=== PATIENT | female | born 1995 | race Caucasian/White ===

== ENCOUNTER 2018-06-16 17:55 | Emergency (ER) | payer MEDICAID ==
[2018-06-16] MEDS ORDERED: KETOROLAC 30 MG/ML VIAL IVP ONE (18:07)
--- NOTE | 2018-06-16 18:11 | Emergency Department Record ---
History of Present Illness - General Chief Complaint: Abdominal Pain Stated Complaint: LOWER RT ABDOMINAL PAIN Time Seen by Provider: 06/16/18 17:58 Source: Patient Mode of Arrival: Ambulatory Limitations: No limitations - History of Present Illness Initial Comments: 23 yo female presents to ED for evaluation of progressively worsening RLQ pain that began yesterday associated with loose stools. Patient denies fevers, chills, or recent illness. Patient does report pain with walking this afternoon prompting visit to the ED. Patient denies urinary symptoms, denies vaginal discharge symptoms, reports previous tubal ligation, sharona, and gastric sleeve. Patient denies health problems at her baseline. MD Complaint: Abdominal pain Onset/Timin -: Days(s) Location: RLQ Radiation: None Migration to: No migration Severity: Moderate Quality: Aching Consistency: Constant Improves With: Nothing Worsens With: Movement Associated Symptoms: Diarrhea - Related Data Patient : No Previous Rx's Medication Instructions Recorded Naproxen [Naprosyn] 500 mg PO Q12H #30 tab. 06/16/18 Allergies Allergy/AdvReac Type Severity Reaction Status Date / Time No Known Drug Allergies Allergy Verified 06/16/18 18:15 Review of Systems Constitutional: Denies: Chills, Fever, Malaise, Night sweats Eyes: Denies: Eye discharge, Eye pain ENT: Denies: Congestion, Ear pain, Epistaxis Respiratory: Denies: Cough, Dyspnea Cardiovascular: Denies: Chest pain, Dyspnea on exertion Endocrine: Denies: Fatigue, Heat or cold intolerance Gastrointestinal: Reports: Abdominal pain, Diarrhea. Denies: Nausea, Vomiting Genitourinary: Denies: Incontinence, Retention Musculoskeletal: Denies: Arthralgia, Back pain, Gout Skin: Denies: Bruising, Change in color Neurological: Denies: Abnormal gait, Confusion, Headache Psychiatric: Denies: Anxiety Hematological/Lymphatic: Denies: Anemia, Blood Clots Physical Exam - General General Appearance: Alert, Oriented x3, Cooperative, Mild distress Limitations: No limitations - Head Head exam: Atraumatic, Normocephalic, Normal inspection Head exam detail: negative: Abrasion, Contusion, Mason's sign, General tenderness, Hematoma, Laceration - Eye Eye exam: Normal appearance. negative: Conjunctival injection, Periorbital swelling, Periorbital tenderness, Scleral icterus - ENT Ear exam: negative: Auricular hematoma, Auricular trauma Nasal Exam: negative: Active bleeding, Discharge, Dried blood Mouth exam: negative: Drooling, Laceration, Muffled voice, Tongue elevation - Neck Neck exam: Normal inspection. negative: Meningismus, Tenderness - Respiratory Respiratory exam: Normal lung sounds bilaterally. negative: Respiratory distress, Rhonchi, Stridor, Wheezes - Cardiovascular Cardiovascular Exam: Regular rate, Normal rhythm, Normal heart sounds - GI/Abdominal GI/Abdominal exam: Soft, Tenderness (TTP over the RLQ, no guarding, rebound, or peritoneal signs on examination.). negative: Pulsatile mass, Rebound, Rigid - Rectal Rectal exam: Deferred - exam: Deferred - Extremities Extremities exam: Normal inspection. negative: Pedal edema, Tenderness - Back Back exam: Denies: CVA tenderness (R), CVA tenderness (L) - Neurological Neurological exam: Alert, Normal gait, Oriented X3 - Psychiatric Psychiatric exam: Normal affect, Normal mood - Skin Skin exam: Normal color. negative: Abrasion Type of lesion: negative: abrasion Course - Reevaluation(s) Reevaluation #1: 06/16/18 19:48 Laboratory studies were reviewed and are grossly unremarkable for an acute process except for Hgb 10.7. UA appears negative. CT Abdomen and Pelvis: No acute process Probable 2.4 cm ovarian cyst RLQ Patient was updated on all results, patient reports that her abdomen "still fucking hurts" following Toradol administration. Will order Ofirmev and reassess. Reevaluation #2: 06/16/18 20:41 Patient was updated on all results, reports that her pain symptoms are improved. Following our discussion, will have the patient return to the ED in the morning for US of the pelvis for further evaluation of her probable right ovarian cyst. Will discharge home on Naprosyn as well. Patient and her mother are in agreement with the plan of care as discussed. Medical Decision Making - Lab Data Result diagrams: 06/16/18 19:20 06/16/18 19:20 Disposition Disposition: Discharge Clinical Impression: Abdominal pain Qualifiers: Abdominal location: right lower quadrant Qualified Code(s): R10.31 - Right lower quadrant pain Disposition: Home, Self-Care Condition: (2) Stable Instructions: Abdominal Pain (ED) Additional Instructions: Return to ED tomorrow morning for US for further evaluation of probable ovarian cyst right lower quadrant. Naprosyn as directed. Follow-up with your family doctor in 3-5 days as directed. Prescriptions: Naproxen [Naprosyn] 500 mg PO Q12H #30 tab.dr Forms: Patient Portal Access Time of Disposition: 20:44 Quality - Quality Measures Quality Measures: N/A - Blood Pressure Screening Does Patient Have Any of the Following: No Blood Pressure Classification: Pre-Hypertensive BP Reading Systolic Measurement: 123 Diastolic Measurement: 85 Screening for High Blood Pressure: < Pre-Hypertensive BP, F/U Documented > [ [id number]] Pre-Hypertensive Follow-up Interventions: Referral to alternative/primary care provider.
[2018-06-16] MEDS ORDERED: 0.9 % SODIUM CHLORIDE 1000ML 1,000 ML IV SCH (18:15)
[2018-06-16 18:20] LABS: HCG,QUALITATIVE URINE NEGATIVE (NEGATIVE); URINE APPEARANCE CLEAR; URINE BILIRUBIN NEGATIVE (NEGATIVE); URINE BLOOD NEGATIVE (NEGATIVE); URINE COLOR YELLOW; URINE GLUCOSE (UA) NEGATIVE (NEGATIVE); URINE KETONE NEGATIVE (NEGATIVE); URINE LEUKOCYTE ESTERASE NEGATIVE (NEGATIVE); URINE NITRITE NEGATIVE (NEGATIVE); URINE PROTEIN NEGATIVE (NEGATIVE); URINE UROBILINOGEN 0.2 E.U./dL (0.20 - 1.00)
[2018-06-16] MEDS ORDERED: ONDANSETRON HCL IV 4 MG/2 ML VIAL IVP ONE (19:19)
[2018-06-16 19:26] LABS: BASO % 0.4 % (0-6); EOS % 1.4 % (0-6); GRAN % 62.4 % (47-80); HEMATOCRIT 33.7 % (35.0-47.0); HEMOGLOBIN 10.7 gm/dl (11.6-16.0); LYMPH % 27.2 % (16-45); MEAN CELL VOLUME 86.4 fl (81-97); MEAN CORPUSCULAR HEMOGLOBIN 27.4 pg (27-33); MEAN CORPUSCULAR HGB CONC 31.8 g/dl (32-36); MEAN PLATELET VOLUME 11.4 fl (7.4-10.4); MONO % 8.6 % (0-9); PLATELET COUNT 260 K/uL (130-400); RED CELL DISTRIBUTION WIDTH 14.4 % (11.5-14.5); WHITE BLOOD COUNT W/O DIFF 9.6 K/uL (4.2-12.2)
[2018-06-16 19:36] LABS: BLOOD UREA NITROGEN 11 mg/dL (6-20); CREATININE 0.6 mg/dL (0.5-0.9); EST GLOMERULAR FILTRATION RATE > 60 mL/min
[2018-06-16 19:37] LABS: LIPASE 19 U/L (13-60); TOTAL PROTEIN 6.2 g/dL (6.6-8.7)
[2018-06-16 19:39] LABS: GLUCOSE,RANDOM 81 mg/dL (74-109)
[2018-06-16 19:41] LABS: ALB/GLOB RATIO 1.5 (1.1-1.8); ALBUMIN 3.7 g/dL (4.0-5.0); ALT/SGPT 11 U/L (<33); AST/SGOT 12 U/L (10.0-35.0)
[2018-06-16 19:42] LABS: ALKALINE PHOSPHATASE 75 U/L (35-104)
[2018-06-16] MEDS ORDERED: ACETAMINOPHEN 1,000 MG/100 ML BTL IVPB ONE (19:47)
--- NOTE | 2018-06-19 13:57 | CT SCAN REPORT ---
EXAM: CT OF THE ABDOMEN AND PELVIS WITH CONTRAST HISTORY: RIGHT LOWER QUADRANT PAIN. TECHNIQUE: After the intravenous administration of 100 ml of Omnipaque 300, axial images are obtained from the dome of the diaphragm to the symphysis pubis. FINDINGS: The lung bases and pleural spaces are clear. The liver is normal. The gallbladder is surgically absent. The pancreas and spleen are within normal limits. The adrenal glands and kidneys demonstrate no evidence of soft tissue mass or hydronephrosis. There are no renal calculi. The stomach demonstrates evidence of prior gastric sleeve resection. There is no gastric or small bowel distention. The appendix is well seen and appears unremarkable. There is no evidence of mesenteric mass, bowel dilatation, free air or intraperitoneal free fluid. There are small ovarian cysts present bilaterally. There is no adnexal mass. The uterus is unremarkable. The bones demonstrate no evidence of lytic or blastic lesion. IMPRESSION: NO ACUTE INTRAABDOMINAL PROCESS IS IDENTIFIED. JOB NUMBER: [id number] MTDD
== END 2018-06-16 20:58 | disposition home or self-care (01) ==
LOC: ER 17:55
DX: R10.31 Right lower quadrant pain (principal); R19.7 Diarrhea, unspecified
CPT/HCPCS: 99284 ×2; 96365; 96375; 96361; 83690; 85025; 80053; 81003; 81025; 74177; Q9967; J1885; J2405; J7030